=== PATIENT | male | born 1965 | race Caucasian/White ===

== ENCOUNTER 2017-11-19 07:44 | Emergency (ER) | payer OTHER ==
[2017-11-19] MEDS ORDERED: Acetaminophen/oxyCODONE 325-5 MG Tab PO ONE (08:14)
--- NOTE | 2017-11-19 08:30 | EDM.PDOC ---
ED HPI GENERAL MEDICAL PROBLEM - General Chief Complaint: General Stated Complaint: BACK AND TESTICLE PAIN Time Seen by Provider: 11/19/17 08:06 Source of Information: Reports: Patient, RN Notes Reviewed - History of Present Illness INITIAL COMMENTS - FREE TEXT/NARRATIVE: 52-year-old male comes in with severe right low back discomfort. He does have a history of a " degenerative disc" has had trouble off and on in the past. Started having pain right low back 4 days ago after doing some lifting the prior day. 2 days ago the pain started coming around to the right groin and scrotum he has had off-and-on severe scrotal discomfort worsening over the past 12-24 hours. No voiding symptomatology. Pain continues to be worse with motion, better to lie still. Was seen at one of the clinics 2 days ago, I believe [facility] and prescribed his prednisone, Flexeril and hydrocodone at that time. Those meds along with ice and heat have helped but this morning the pain is even more severe than what it has been. He has not taken anything for the pain at this morning. The pain does not radiate down into the right leg. No numbness or tingling. Generalized Pain Score (Numeric/FACES): 8 - Related Data Allergies Allergy/AdvReac Type Severity Reaction Status Date / Time No Known Allergies Allergy Verified 11/19/17 08:02 Home Meds: Home Meds Acetaminophen/oxyCODONE [Percocet 325-5 MG] 1 each PO Q6HR PRN #10 tab 11/19/17 [Rx] atorvaSTATin [Lipitor] 10 mg PO DAILY 11/19/17 [History] Past Medical History Cardiovascular History: Reports: High Cholesterol Musculoskeletal History: Reports: Other (See Below) Other Musculoskeletal History: bad disc Social & Family History - Tobacco Use Smoking Status *Q: Current Every Day Smoker Years of Tobacco use: 3 Packs/Tins Daily: 0.2 - Caffeine Use Caffeine Use: Reports: Coffee - Recreational Drug Use Recreational Drug Use: No ED ROS GENERAL - Review of Systems Review Of Systems: See Below Constitutional: Denies: Fever, Chills, Diaphoresis HEENT: Reports: No Symptoms Respiratory: Denies: Shortness of Breath Cardiovascular: Denies: Chest Pain GI/Abdominal: Denies: Abdominal Pain, Diarrhea, Nausea, Vomiting : Reports: No Symptoms, Other (Right scrotal pain, no obvious swelling) Musculoskeletal: Reports: Back Pain. Denies: Leg Pain, Joint Pain Skin: Reports: No Symptoms Neurological: Denies: Numbness, Tingling, Weakness ED EXAM, GENERAL - Physical Exam Exam: See Below General Appearance: Alert, Moderate Distress Eye Exam: Bilateral Eye: PERRL Head: Atraumatic Neck: Supple Respiratory/Chest: No Respiratory Distress, Lungs Clear, Normal Breath Sounds Cardiovascular: Regular Rate, Rhythm GI/Abdominal: Soft, Non-Tender. No: Guarding (Male) Exam: Scrotum Tenderness (R), Testicular Tenderness (R) (Mild), Other (No warmth, swelling or erythema present at time of exam). No: Testicular Mass Back Exam: CVA Tenderness (R). No: CVA Tenderness (L) (Mild) Extremities: Normal Inspection, Normal Range of Motion. No: Leg Pain Neurological: Alert, Oriented, No Motor/Sensory Deficits Skin Exam: Warm, Dry, Normal Color Course - Vital Signs Last Recorded V/S: Last Vital Signs Temp 97.2 F 11/19/17 07:50 Pulse 61 11/19/17 07:50 Resp 16 11/19/17 07:50 BP 156/98 H 11/19/17 07:50 Pulse Ox 97 11/19/17 07:50 - Orders/Labs/Meds Orders: Active Orders 24 hr Category Date Time Status UA W/MICROSCOPIC [URIN] Stat Lab 11/19/17 08:30 Ordered Labs: Laboratory Tests 11/19/17 Range/Units 08:30 Urine Color Yellow (Yellow) Urine Appearance Clear (Clear) Urine pH 6.5 (5.0-8.0) Ur Specific [place] 1.025 (1.005-1.030) Urine Protein Negative (Negative) Urine Glucose (UA) Negative (Negative) Urine Ketones Negative (Negative) Urine Occult Blood Negative (Negative) Urine Nitrite Negative (Negative) Urine Bilirubin Negative (Negative) Urine Urobilinogen 0.2 (0.2-1.0) Ur Leukocyte Esterase Negative (Negative) Urine RBC Not seen (0-5) /hpf Urine WBC Not seen (0-5) /hpf Ur Epithelial Cells Not seen (0-5) /hpf Urine Bacteria Not seen (FEW) /hpf Urine Mucus Many H (FEW) /hpf Meds: Medications Discontinued Medications Generic Name Dose Route Start Last Admin Trade Name Freq PRN Reason Stop Dose Admin Oxycodone/Acetaminophen 1 tab 11/19/17 08:14 11/19/17 08:19 Percocet 325-5 Mg PO 11/19/17 08:15 1 tab ONETIME ONE Administration - Re-Assessments/Exams Free Text/Narrative Re-Assessment/Exam: 11/19/17 12:51 UA did come back normal, testicular ultrasound also did not show acute findings , because of severity of discomfort, radiating to groin yesterday and today did order CT abdomen pelvis noncontrast to rule out some type of renal problem or something of that nature. Also come back no acute findings. Radiology reports for details. He did get good relief of discomfort from one oral Percocet. Discharge instructions as documented. Order also provided for physical therapy. Departure - Departure Time of Disposition: 12:47 Disposition: Home, Self-Care 01 Condition: Fair Clinical Impression: Low back strain Qualifiers: Encounter type: initial encounter Qualified Code(s): S39.012A - Strain of muscle, fascia and tendon of lower back, initial encounter - Discharge Information Prescriptions: Acetaminophen/oxyCODONE [Percocet 325-5 MG] 1 each PO Q6HR PRN #10 tab PRN Reason: Pain Referrals: Shanel Valadez PA-C [Primary Care Provider] - Forms: ED Department Discharge, ED Return to Work/School Form Additional Instructions: Rest back, no heavy lifting, alternate ice and heat, Naprosyn 500 mg twice daily for pain and inflammation, you may continue the muscle relaxer medication as needed, continue prednisone until gone, he may take Tylenol in addition up to 3 times daily or Percocet if needed for severe pain. Drive or work when taking Percocet. Do not take Tylenol and Percocet at the same time. Physical therapy for additional treatment of low back pain. Off work until Friday, then return to work as tolerated. Follow-up clinic if not getting back to normal within 4-5 days as expected. - My Orders Last 24 Hours: My Active Orders 11/19/17 08:30 UA W/MICROSCOPIC [URIN] Stat - Assessment/Plan Last 24 Hours: My Active Orders 11/19/17 08:30 UA W/MICROSCOPIC [URIN] Stat
--- NOTE | 2017-11-19 10:17 | US ---
Testicular ultrasound: Multiple real-time images of the testicles were obtained. Comparison: No prior testicular ultrasound. Findings: Both testicles have a homogeneous ultrasound appearance without discrete focal abnormality. Small hydroceles are seen on both sides. Right epididymis appears more hypoechoic than the left side but no findings of asymmetric vascular flow seen on Doppler evaluation. Epididymal cyst is noted on the right side measuring 1.1 cm in greatest dimension. Both arterial and venous blood flow seen within the testicles. Measurements: Right testicle: 4.2 x 1.9 x 2.6 cm Left testicle: 4.2 x 1.9 x 2.5 cm Impression: 1. Right epididymis slightly more hypoechoic in appearance in the left side. This would suggest the possibility of epididymitis although no asymmetric increased vascular flow seen on Doppler evaluation to confirm. This finding is likely incidental. 2. Minimal hydroceles on both sides. 3. 1.1 cm right epididymal cyst. Diagnostic code #3
--- NOTE | 2017-11-19 12:19 | CT ---
CT abdomen and pelvis Technique: Multiple axial sections were obtained from above the kidneys inferiorly through the pubic symphysis. Intravenous and oral contrast was not utilized. Study has been performed as a ureteral stone protocol. Findings: Kidneys show no abnormal calcifications. No ureteral dilatation is seen. No abnormal calcifications are seen along the course of the ureters. Visualized portions of the lower liver have an unremarkable noncontrast appearance. Spleen appears within normal limits. Adrenal glands show no nodule. Pancreas is within normal limits. Gallbladder contains no calcified gallstones. Aorta shows no aneurysmal dilatation. No retroperitoneal adenopathy or mesenteric abnormalities are seen. Appendix is felt to be visualized which appears normal. No pelvic mass or adenopathy is seen. No inflammatory change or free fluid is seen. Mild increased stool seen throughout the colon. Bone window settings were reviewed which show minimal degenerative change scattered within the spine. Impression: 1. No renal calculi, ureteral dilatation or ureteral stone is seen. 2. Appendix is felt to be visualized which appears within normal limits. 3. Minimal increased stool is noted throughout the colon. 4. Other incidental findings. Nothing acute is appreciated on CT study of the abdomen and pelvis performed as a ureteral stone protocol. Diagnostic code #2
== END 2017-11-19 13:15 | disposition home or self-care (01) ==
LOC: JD.ED 07:44
DX: S39.012A Strain of muscle, fascia and tendon of lower back, initial encounter (principal); F17.210 Nicotine dependence, cigarettes, uncomplicated; X50.9XXA Other and unspecified overexertion or strenuous movements or postures, initial encounter
CPT/HCPCS: 74176; 76870; 81001; 93975; 99284; A9270; 99283

== ENCOUNTER 2021-04-28 10:11 | Emergency (ER) | payer BC, OTHER ==
[2021-04-28] MEDS ORDERED: Lidocaine 1% 10 ML MDV INJECT ONE (11:12)
[2021-04-28] MEDS ORDERED: Diphtheria,Pertussis(Acell),Tetanus Vaccine 0.5 ML Syringe IM ONE (11:57)
[2021-04-28] MEDS ORDERED: Diphtheria,Pertussis(Acell),Tetanus Vaccine 0.5 ML Syringe ONE (11:57)
== END 2021-04-28 12:21 | disposition home or self-care (01) ==
LOC: JD.ED 10:11
DX: S61.112A Laceration without foreign body of left thumb with damage to nail, initial encounter (principal); E78.00 Pure hypercholesterolemia, unspecified; Z23 Encounter for immunization; W26.0XXA Contact with knife, initial encounter
CPT/HCPCS: 12002; 90471; 90715; 99282-25